=== PATIENT | male | born 1950 | race Caucasian/White ===

== ENCOUNTER 2016-08-14 20:29 | Emergency (ER) | payer MEDICARE, OTHER ==
[~2016-08-14 20:29] MED LIST: ASPIRIN325 MG PO; BACLOFEN 10MG T10 MG PO; DEPAKOTE250 MG PO; ELAVIL25 MG PO; IMDUR 30MG TABL30 MG PO; LIPITOR40 MG PO; LOPRESSOR50 MG PO; PLAVIX75 MG PO; REMERON15 MG PO; VITAMIN B-121000 MC1 PO; ZESTRIL5 MG PO
[2016-08-14 21:00] LABS: BASOPHIL 0.4 % (0-2); EOSINOPHIL 3.8 % (0-7); HCT 36.4 % (42.0-52.0); HGB 11.8 g/dl (13.2-18.0); LYMPHOCYTE 25.9 % (15-48); MCH 27.8 pg (25.0-31.0); MCHC 32.4 g/dL (32.0-36.0); MCV 85.6 fL (78.0-100.0); MONOCYTE 7.8 % (0-12); MPV 9.4 fL (6.0-9.5); NEUTROPHIL 62.1 % (41-80); PLT 310 K/uL (150-400); RBC 4.25 M/uL (4.70-6.00); RDW 16.2 % (11.5-14.0); WBC 8.5 K/uL (4.0-10.5)
[2016-08-14 21:12] LABS: TROPONIN T 0.012 ng/mL
[2016-08-14 21:13] LABS: ALBUMIN 3.6 g/dL (3.4-4.8); BILIRUBIN - TOTAL 0.4 mg/dL (0.1-1.0); CREATININE 1.3 mg/dL (0.7-1.2); GLOBULIN (CALCULATION) 3.9 g/dL (2.2-4.2); POTASSIUM 4.4 mmol/L (3.5-5.1); TOTAL PROTEIN 7.5 g/dL (6.4-8.3)
== END 2016-08-14 23:52 | disposition home or self-care (01) ==
LOC: FER 20:29
PROVIDERS: Emergency Medicine
DX: R06.02 Shortness of breath (principal); R05 Cough; I25.810 Atherosclerosis of coronary artery bypass graft(s) without angina pectoris; I50.9 Heart failure, unspecified; J44.9 Chronic obstructive pulmonary disease, unspecified; F17.210 Nicotine dependence, cigarettes, uncomplicated; Z87.442 Personal history of urinary calculi; Z99.81 Dependence on supplemental oxygen; Z95.0 Presence of cardiac pacemaker; Z95.1 Presence of aortocoronary bypass graft
CPT/HCPCS: 36415; 36600; 71010; 80053; 82803; 83880; 84484; 85025; 93005

== ENCOUNTER 2016-08-19 02:12 | Day surgery (SDCO) | payer MEDICARE, OTHER ==
[2016-08-19 03:16] LABS: BASOPHIL 0.3 % (0-2); EOSINOPHIL 5.3 % (0-7); HCT 34.9 % (42.0-52.0); HGB 11.1 g/dl (13.2-18.0); LYMPHOCYTE 22.2 % (15-48); MCH 27.8 pg (25.0-31.0); MCHC 31.8 g/dL (32.0-36.0); MCV 87.3 fL (78.0-100.0); MONOCYTE 8.8 % (0-12); MPV 9.2 fL (6.0-9.5); NEUTROPHIL 63.4 % (41-80); PLT 315 K/uL (150-400); RDW 16.4 % (11.5-14.0); WBC 11.7 K/uL (4.0-10.5)
[2016-08-19 03:34] LABS: CREATININE 1.5 mg/dL (0.7-1.2)
[2016-08-19 03:50] LABS: INR 0.99 (0.9-1.2); PROTHROMBIN TIME 12.7 SECONDS (11.7-14.0); PTT 29.2 SECONDS (23.2-31.4)
[2016-08-19 09:17] LABS: CKMB 1.86 ng/mL (0.97-4.94); MYOGLOBIN 54 ng/mL (26-65); TROPONIN T < 0.010 ng/mL
[2016-08-19 09:24] LABS: PRO-BNP 1290 pg/mL (0-125)
[2016-08-20 04:31] LABS: CREATININE 1.6 mg/dL (0.7-1.2); POTASSIUM 4.8 mmol/L (3.5-5.1)
[2016-08-20 05:34] LABS: BASOPHIL 0.1 % (0-2); EOSINOPHIL 0 % (0-7); HCT 31.7 % (42.0-52.0); HGB 10.1 g/dl (13.2-18.0); LYMPHOCYTE 6.4 % (15-48); MCH 27.6 pg (25.0-31.0); MCHC 31.9 g/dL (32.0-36.0); MCV 86.6 fL (78.0-100.0); MONOCYTE 1.8 % (0-12); MPV 10.1 fL (6.0-9.5); NEUTROPHIL 91.7 % (41-80); PLT 332 K/Ul (150-400); RBC 3.66 M/uL (4.70-6.00); RDW 16.1 % (11.5-14.0); WBC 14.7 K/uL (4.0-10.5)
[2016-08-20] MEDS ORDERED: DUONEB 2.5-0.5M1 AMP NEB (11:24)
[2016-08-20] MEDS ORDERED: LEVAQUIN750 MG PO (11:24)
[2016-08-20] MEDS ORDERED: PREDNISONE 10MG10 MG PO (11:24)
== END 2016-08-20 12:57 | disposition home health service (06) ==
LOC: FER 02:12 → FMS 04:32
PROVIDERS: Emergency Medicine; Hospitalist; ADMIT Internal Medicine
DX: J44.1 Chronic obstructive pulmonary disease with (acute) exacerbation (principal); J96.20 Acute and chronic respiratory failure, unspecified whether with hypoxia or hypercapnia; I25.10 Atherosclerotic heart disease of native coronary artery without angina pectoris; I12.9 Hypertensive chronic kidney disease with stage 1 through stage 4 chronic kidney disease, or unspecified chronic kidney disease; N18.3 Chronic kidney disease, stage 3 (moderate); E78.5 Hyperlipidemia, unspecified; F17.200 Nicotine dependence, unspecified, uncomplicated; Z90.49 Acquired absence of other specified parts of digestive tract; Z95.0 Presence of cardiac pacemaker; Z95.1 Presence of aortocoronary bypass graft; Z87.442 Personal history of urinary calculi; Z98.49 Cataract extraction status, unspecified eye; Z79.82 Long term (current) use of aspirin; Z79.02 Long term (current) use of antithrombotics/antiplatelets; Z79.899 Other long term (current) drug therapy
CPT/HCPCS: 36415; 36600; 71010; 80048; 80061; 82550; 82553; 82803; 83874; 83880; 84484; 85025; 85379; 85610; 85730; 87040; 87804; 87899; 93005; 94640; G0378; J1956; J2930